=== PATIENT | male | born 1990 ===

== ENCOUNTER 2018-05-28 18:36 | Emergency (ER) | payer OTHER ==
[~2018-05-28] VITALS: Ht 175.3 cm; Wt 81.6 kg
[~2018-05-28 18:36] MED LIST: ORPH100T PO
== END 2018-05-28 19:52 | disposition home or self-care (01) ==
LOC: ER 18:36
DX: S63.591A Other specified sprain of right wrist, initial encounter (principal); G89.11 Acute pain due to trauma; X50.3XXA Overexertion from repetitive movements, initial encounter; Y93.89 Activity, other specified; Y92.89 Other specified places as the place of occurrence of the external cause; Y99.8 Other external cause status

== ENCOUNTER 2019-01-23 19:11 | Emergency (ER) | payer OTHER ==
[~2019-01-23] VITALS: Ht 175.3 cm; Wt 77.1 kg
[2019-01-23] MEDS ORDERED: AMOXICILLIN125 MG (20:41)
== END 2019-01-24 00:08 | disposition home or self-care (01) ==
LOC: ER 19:11
DX: J06.9 Acute upper respiratory infection, unspecified (principal)